=== PATIENT | female | born 1940 | race Hispanic/Latino ===

== ENCOUNTER → 2022-04-11 | Outpatient (CLI) | payer OTHER ==
[~2022-04-11] MED LIST: ASPI-556 PO; ATOR10 PO; CALCIUM+VIT D PO; HYDR25TA PO; ISOSORBIDE PO; LEVO150T11 PO; LOSA50TA64 PO; METF-446 PO; MULTIVITAMIN PO; SITA100T12 PO; VIT B6 PO
== END | disposition home or self-care (01) ==
LOC: LAB 10:43
PROVIDERS: ATTEND Internal Medicine Cardiovascular Disease
DX: E03.9 Hypothyroidism, unspecified (principal)
CPT/HCPCS: 36415; 84443